=== PATIENT | female | born 1940 | race Hispanic/Latino ===

== ENCOUNTER 2017-12-05 06:44 | Day surgery (SDC) | payer MEDICARE ==
[2017-12-05] MEDS ORDERED: ECOTRIN PO NR (07:25)
[2017-12-05] MEDS ORDERED: NACL 0.9% 500 ML 500 ML IV SCH (08:00)
[2017-12-05 08:02] LABS: INR 0.95 (0.87-1.13)
[2017-12-05 08:05] LABS: Calcium 9.8 mg/dL (8.4-10.2)
[2017-12-05] MEDS ORDERED: TYLENOL ONE (08:08)
[2017-12-05] MEDS ORDERED: ASPIRIN PO NR (08:08)
[2017-12-05] MEDS ORDERED: CALAN ONE (08:15)
[2017-12-05] MEDS ORDERED: HEPARIN/NS 5000 UNIT/500ML(CATH LAB) 1,000 ML IR ONE (08:15)
[2017-12-05] MEDS ORDERED: HEPARIN 10,000 UNITS/10 ML ONE (08:15)
[2017-12-05] MEDS ORDERED: NITROGLYCERIN SYRINGE 0 ML ONE (08:16)
[2017-12-05 08:19] LABS: Basophils % (Auto) 0.5 % (0.0-1.8); Eosinophils # (Auto) 0.2 K/mm3 (0.0-0.4); Eosinophils % (Auto) 2.2 % (0.0-4.3); Hematocrit 29.9 % (30.3-42.9); Hemoglobin 10.2 gm/dl (10.1-14.3); Lymphocytes # (Auto) 2.3 K/mm3 (1.2-5.4); Lymphocytes % (Auto) 24.1 % (13.4-35.0); Mean Corpuscular HGB Conc 34 % (30-34); Mean Corpuscular Hemoglobin 31 pg (28-32); Mean Corpuscular Volume 90 fl (79-97); Monocytes # (Auto) 0.8 K/mm3 (0.0-0.8); Monocytes % (Auto) 8.4 % (0.0-7.3); Platelet Count 225 K/mm3 (140-440); Red Blood Count 3.33 M/mm3 (3.65-5.03); Red Cell Distribution Width 14.4 % (13.2-15.2)
[2017-12-05] MEDS: VERSED ONE ×3 (09:14→09:46)
[2017-12-05] MEDS: SUBLIMAZE ONE ×3 (09:15→09:46)
[2017-12-05] MEDS: XYLOCAINE 2% INFILTRATI ONE ×3 (09:15→09:46)
[2017-12-05] MEDS ORDERED: CARDIZEM ONE (09:34)
[2017-12-05] MEDS ORDERED: D5W 100 ML IV ONE (09:56)
[2017-12-05] MEDS: CORDARONE IV ONE ×2 (10:05→10:11)
[2017-12-05] MEDS ORDERED: CORDARONE 900 MG in D5W 482 ML IV SCH (10:30)
[2017-12-05] MEDS ORDERED: ZOFRAN IV PRN (11:05)
[2017-12-05] MEDS ORDERED: ZOFRAN ONE (11:40)
--- NOTE | 2017-12-05 11:47 | Cardiac Catherization Report ---
CLINICAL INFORMATION: This is a 77-year-old female with history of bypass surgery, three-vessel in 2010 with history of hypertension, hyperlipidemia, was found to have new onset atrial flutter with new onset LV dysfunction, has mild renal insufficiency, is here for a left heart catheterization. Moderate sedation under my supervision with 0.5 mg Versed and 100 mcg of fentanyl was given. A total sedation time was 30 minutes, started at 9:46 a.m. and finished at 10:14 a.m. PROCEDURE DETAILS: It was done via the right femoral artery, sterile technique, local anesthesia, [place] groin sheath inserted. PROCEDURAL FINDINGS: Left system engaged with JL4 catheter, left main is a large caliber vessel, patent with mild luminal irregularities. LAD is a large caliber vessel is patent from proximally mid with mild luminal irregularities, extensive septal system noted that is patent and mid portion becomes 100% almost like a dual LAD, circumflex is a small caliber vessel, mid is 100%. RCA is a dominant vessel, large caliber mid 100%. SVG to PDA was engaged with AR mod catheter, large caliber graft, free of disease at the body, mid portion is ectatic, distal is patent to a [id number]-pm-camhqv caliber distal RCA feeds into a lvjdf-va-poojyo caliber PDA, PLV and retrograde fills the RCA which are patent. JAYY was subselected, it was not used. SVG to OM was engaged with an LCB catheter, is a large caliber graft, free of disease at the ostium, body anastomosis site, feeds into the OM2 with retrograde fill into the distal circ and OM3, which are vjufd-md-spailo caliber vessel with moderate tortuosity, BRICE was engaged with IM catheter. There is a large caliber graft, free of disease at its most body and feeds into the diagonal 1 with collaterals feeding and to a small LAD. LV gram done and DIANN view shows moderate LV dysfunction, EF about 35%. LVEDP is 18 mmHg, LV is 130, aortic is 124/61. No gradient across the aortic valve on pullback. A 5[place] catheters were taken over a guidewire, [place] groin sheath discontinued. Manual pressure held. No hematoma, no bleeding. SUMMARY: The extensive [place] coronary artery disease, left main patent, LAD mid 100%, extensive circumflex mid 100%, RCA mid 100%, patent SVG to PDA, patent SVG to OM, patent BRICE to LAD and true LAD is a small caliber vessel that is patent, moderate LV dysfunction of 35%, LVEDP 18 mmHg. 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 Discussed the details with the patient and the patient's family in detail. JOB# [id number] ALAN/ROMULO
[2017-12-05] MEDS ORDERED: ULTRAM PO ONE (11:51)
--- NOTE | 2017-12-05 14:54 | Short Stay Summary ---
Short Stay Documentation Date of service: 12/05/17 - History H&P: obtained from office - Allergies and Medications Current Medications: Allergies Penicillins Allergy (Verified 12/05/17 07:28) Hives atenolol [From Tenormin] Adverse Reaction (Verified 12/05/17 07:31) Shortness of Breath difficulty breathing chlorpropamide [From Diabinese] Adverse Reaction (Verified 12/05/17 07:31) Headache codeine Adverse Reaction (Verified 12/05/17 07:31) Vomiting glyburide [From Micronase] Adverse Reaction (Verified 12/05/17 07:31) Headache lisinopril Adverse Reaction (Verified 12/05/17 07:31) Nausea cold sore morphine Adverse Reaction (Verified 12/05/17 07:31) Vomiting nalbuphine [From Nubain] Adverse Reaction (Verified 12/05/17 07:31) Unknown hyper red (food color) Adverse Reaction (Verified 12/05/17 07:31) Headache sulfamethoxazole [From Bactrim] Adverse Reaction (Verified 12/05/17 07:31) Vomiting trimethoprim [From Bactrim] Adverse Reaction (Verified 12/05/17 07:31) Vomiting Home Medications Medication Instructions Recorded Confirmed Last Taken Type Amiodarone [Cordarone 200 MG TAB] 200 mg PO BID #11 tab 12/05/17 Unknown Rx Amiodarone [Cordarone 200 MG TAB] 200 mg PO DAILY #30 tablet 12/05/17 Unknown Rx Apixaban [Eliquis] 5 mg PO Q12HR 12/05/17 12/05/17 12/04/17 History 5mg Aspirin [Aspir-Low] 81 mg PO DAILY 12/05/17 12/05/17 12/05/17 History 81mg Bumetanide 2 mg tab 2 mg PO BID 12/05/17 12/05/17 12/04/17 History 2mg Crestor 20 mg PO QHS 12/05/17 12/05/17 12/04/17 History 20mg Metoprolol SUCCINATE ER TAB 50 mg PO DAILY 12/05/17 12/05/17 12/04/17 History 50mg NovoLIN 70/30 20 units SUB-Q DAILY 12/05/17 12/05/17 12/04/17 History 20units Potassium Chloride [Klor-Con 10 meq PO BID 12/05/17 12/05/17 12/04/17 History Donnale] 10meq - Brief post op/procedure progress note Date of procedure: 12/05/17 Pre-op diagnosis: CMP; CAD Post-op diagnosis: same Procedure: LHC - please see dictated cath report Anesthesia: local Estimated blood loss: none Condition: stable - Hospital course Hospital course: Pt is a 77 YO female with a past medical history significant for CAD s/p CABG, HTN, new onset atrial fibrillation and atrial flutter with new onset LV dysfunction. She presented for scheduled elective LHC. She presented with resting HR in 120s. She successfully underwent LHC and following LHC, she developed nausea, vomiting, and persistent tachycardia (AFlutter with RVR). She was initiated on IV amio. Following initiation of IV amio, IV zofran and PO analgesics (for chronic back pain), HR improved to 100s at rest. Pt is currently clincally and hemodynamically stable and can be discharged home this afternoon. She will be discharged home on PO amio (200mg PO BID x 5 days and then 200mg daily). She is to follow up with Dr. Mahoney and Dr. Shankar. - Disposition Condition at discharge: Good Disposition: [id number] TO HOME OR SELFCARE - Discharge Diagnoses (1) CAD (coronary artery disease) Status: Chronic (2) History of coronary artery bypass graft Status: Chronic (3) Atrial fibrillation with RVR Status: Acute (4) Cardiomyopathy Status: Chronic (5) HTN (hypertension) Status: Chronic (6) Diabetes Status: Chronic (7) Carotid stenosis Status: Chronic Short Stay Discharge Plan Activity: advance as tolerated Diet: low fat, low cholesterol, low salt Wound: open to air, keep clean and dry, per your surgeon's advice Follow up with: TIERA BARDALES MD [Other] - 7 Days Prescriptions: Amiodarone [Cordarone 200 MG TAB] 200 mg PO BID #11 tab Amiodarone [Cordarone 200 MG TAB] 200 mg PO DAILY #30 tablet
[2017-12-05 16:16] VITALS: BP 131/70
== END 2017-12-05 16:30 | disposition home or self-care (01) ==
LOC: CATH 06:44
PROVIDERS: ATTEND Internal Medicine
DX: I48.92 Unspecified atrial flutter (principal); I11.0 Hypertensive heart disease with heart failure; I50.9 Heart failure, unspecified; I25.10 Atherosclerotic heart disease of native coronary artery without angina pectoris; I25.2 Old myocardial infarction; E11.9 Type 2 diabetes mellitus without complications; Z88.0 Allergy status to penicillin; Z88.8 Allergy status to other drugs, medicaments and biological substances; Z88.5 Allergy status to narcotic agent; Z79.01 Long term (current) use of anticoagulants; Z79.82 Long term (current) use of aspirin; Z79.4 Long term (current) use of insulin
CPT/HCPCS: 36415; 80048; 85025; 85610; 85730; 93005; 93010; 93459; 96365; 96366; 96374; 99156; 99157; J0282; J1644; J2250; J2405; J3010; J7040; J7060; Q9967